=== PATIENT | female | born 1960 | race Caucasian/White ===

== ENCOUNTER 2022-03-27 08:01 | Day surgery (SDC) | payer OTHER ==
[~2022-03-27] VITALS: Ht 157.5 cm; Wt 81.6 kg
[2022-03-27] MEDS ORDERED: LIDOCAINE 2% 100 MG/5 ML UJET TP ONE (10:02)
[2022-03-27] MEDS ORDERED: fentaNYL citrate 0.05 MG/ML VIAL ONE (10:02)
[2022-03-27] MEDS ORDERED: MIDAZOLAM 5 MG/5 ML VIAL ONE (10:02)
[2022-03-27] MEDS ORDERED: MIDAZOLAM 2 MG/2 ML VIAL IVP ONE ×2 (13:00→16:45)
[2022-03-27] MEDS ORDERED: fentaNYL citrate 0.05 MG/ML VIAL IVP ONE ×2 (13:00→16:45)
== END 2022-03-27 11:41 | disposition home or self-care (01) ==
LOC: MDS 08:01 → MMU 08:01 → MDS 11:41
PROVIDERS: ATTEND Internal Medicine Gastroenterology
DX: Z12.11 Encounter for screening for malignant neoplasm of colon (principal); R10.11 Right upper quadrant pain; K76.0 Fatty (change of) liver, not elsewhere classified; Z20.822 Contact with and (suspected) exposure to COVID-19; Z79.899 Other long term (current) drug therapy
CPT/HCPCS: 36415; 43239; 45378; 86677; 87426; J2250; J3010